=== PATIENT | female | born 1955 | race Caucasian/White ===

== ENCOUNTER 2018-01-23 15:24 | Outpatient (CLI) | payer MEDICARE ==
[~2018-01-23 15:24] MED LIST: Gadobenate Dimeglumine 529 MG/1 ML (20ML VIAL) ONE
--- NOTE | 2018-01-23 19:08 | MRI ---
BRAIN MRI WITH AND WITHOUT CONTRAST: 01/23/18 INDICATION: New onset memory loss, cognitive impairment. FINDINGS: There is no evidence of ventriculomegaly, mass effect, midline shift or acute territorial infarction. There are scattered punctate susceptibility foci bilaterally, nonspecific. There is minimal chronic ischemic disease of the cerebral white matter. There is no pathologic intra-axial enhancement. The im aged skull base flow voids are patent. There is retention cyst formation within the visualized parana kendell sinuses. IMPRESSION: 1. No acute intracranial abnormalities. 2. Few scattered punctate susceptibility foci of the cerebral hemispheres which may be related t o minimal hemosiderin deposition as there are scattered foci of gliosis indicative of microvascular i schemic disease. No pathologic enhancement evident. POS: YEISONH
== END 2018-01-23 15:25 | disposition home or self-care (01) ==
LOC: MRI 15:24
PROVIDERS: ATTEND Family Medicine
DX: G31.84 Mild cognitive impairment of uncertain or unknown etiology (principal); G93.89 Other specified disorders of brain
CPT/HCPCS: 36415; 70553; 80053; 80061; 83036; 84443; 85025; A9579

== ENCOUNTER 2018-07-15 09:53 | Emergency (ER) | payer MEDICARE ==
[2018-07-15] MEDS ORDERED: Ketorolac Tromethamine 30 MG/ML VIAL ONE (10:34)
[2018-07-15] MEDS ORDERED: Acetaminophen 325 MG TAB ONE (10:34)
--- NOTE | 2018-07-15 11:16 | RAD ---
LUMBAR SPINE THREE VIEWS: History: Back pain. Injury to back. FINDINGS: Moderate to severe degenerative change of the lumbar spine. There is anterior wedging of the L2 verte bra with wedging most pronounced laterally to the right. There is a slight scoliotic curvature with a pex at L2 with scoliosis to the left. Loss of disc space is prominent at L1-2 and L2-3 with prominent anterior and lateral osteophytes at these levels. Slight posterior listhesis of L1 on L2 and L2 on L3 on the lateral view. IMPRESSION: Moderate to severe degenerative changes, most prominent at L2 and L3 as described. POS: FABRICIO
[2018-07-15 11:49] LABS: Bilirubin Negative (Negative); Blood, Urine Negative (Negative); Clarity CLEAR (Clear); Glucose, Urine (Dipstick) Negative (Negative); Leukocyte Negative (Negative); Nitrite Negative (Negative); Protein, Urine (Dipstick) Negative (Neg-Trace); Specific Gravity, Urine 1.026 (1.002-1.036); Urobilinogen 0.2 mg/dL (0.2-1.0)
== END 2018-07-15 12:53 | disposition home or self-care (01) ==
LOC: ERS 09:53
DX: M54.5 Low back pain (principal); E11.9 Type 2 diabetes mellitus without complications; I10 Essential (primary) hypertension; F17.210 Nicotine dependence, cigarettes, uncomplicated
CPT/HCPCS: 72100; 81003; 96372; J1885

== ENCOUNTER 2022-06-06 08:17 | Outpatient (CLI) | payer MEDICARE, OTHER | END 2022-06-06 08:18 | disposition home or self-care (01) | LOC: SCSMRI 08:17 | PROVIDERS: ATTEND Family Medicine | DX: M25.551 Pain in right hip (principal) ==

== ENCOUNTER 2022-08-01 07:00 | Outpatient (CLI) | payer MEDICARE, OTHER | END 2022-08-01 07:01 | disposition home or self-care (01) | LOC: BICULT 07:00 | PROVIDERS: ATTEND Family Medicine | DX: N83.8 Other noninflammatory disorders of ovary, fallopian tube and broad ligament (principal) | CPT/HCPCS: 76856 ==

== ENCOUNTER 2024-12-30 21:46 | Inpatient (IN) | payer MEDICARE ==
[2024-12-30] MEDS ORDERED: Nitroglycerin 0.4 MG TAB (25 Tab Bottle) SL PRN (22:58)
[2024-12-30] MEDS ORDERED: Ondansetron PF 4 MG/2 ML Vial IVP PRN (23:00)
[2024-12-30] MEDS ORDERED: Electrolyte Replacement Protocol 1 EACH FS SCH (23:00)
[2024-12-30] MEDS ORDERED: Calcium Carbonate 500 MG ChewTAB PO PRN (23:00)
[2024-12-30 23:02] VITALS: BMI 26.8
[2024-12-31] MEDS ORDERED: Glucagon 1 MG/ML KIT IM PRN (00:08)
[2024-12-31] MEDS ORDERED: Dextrose 50% Abboject 50 ML SYRINGE SLOW IVP PRN (00:08)
[2024-12-31 04:58] LABS: #Basophils 0.05 10x3/uL (0.0-0.2); #Eosinophils 0.24 10x3/uL (0.0-0.7); #Monocytes 0.91 10x3/uL (0.11-0.59); #Neutrophils 3.82 10x3/uL (1.40-6.50); %Basophils 0.7 % (0.0-1.0); %Eosinophils 3.1 % (0.0-10.0); %Lymphocytes 34.5 % (21.0-51.0); %Monocytes 11.8 % (0.0-10.0); %Neutrophils 49.6 % (42.0-75.0); Hematocrit 37.8 % (36.0-47.0); Hemoglobin 12.1 g/dL (12.0-16.0); Mean Corpuscular Hemoglobin 29.5 pg (27.0-31.0); Mean Corpuscular Volume 92.2 fL (78.0-98.0); Platelet Count 201 10x3/uL (130-400); Red Blood Cell (RBC) Count 4.10 mill/uL (4.20-5.40); White Blood Cell (WBC) Count 7.69 10x3/uL (4.8-10.8)
[2024-12-31 05:21] LABS: ALT (SGPT) 16 U/L (Less than 34); AST (SGOT) 43 U/L (11-34); Albumin 3.6 g/dL (3.1-4.5); Alkaline Phosphatase 65 U/L (40-110); Anion Gap 12 mmol/L (10-20); BUN (Urea Nitrogen) 22 mg/dL (9.8-20.1); Bilirubin, Total 0.6 mg/dL (0.3-1.2); Calc. Creatinine Clearance 52 mL/min (70-130); Calcium 8.8 mg/dL (7.8-10.44); Carbon Dioxide 25 mmol/L (23-31); Chloride 109 mmol/L (98-107); Globulin 2.3 g/dL (2.4-3.5); Glucose 49 mg/dL (80-115); Potassium 3.6 mmol/L (3.5-5.1); Sodium 142 mmol/L (136-145)
[2024-12-31] MEDS: Aspirin Chewable 81 MG TAB PO SCH (09:49)
[2024-12-31] MEDS ORDERED: Iopamidol 370 76% 100 ML VIAL ONE (11:09)
[2024-12-31] MEDS ORDERED: Communication Order-Pharmacy FS SCH (14:30)
[2024-12-31] MEDS ORDERED: EPINEPHrine 1 MG/10 ML Abboject SYRINGE ONE (14:55)
[2024-12-31] MEDS ORDERED: Adenosine 6 mg (2 mL) VIAL ONE (14:55)
[2024-12-31] MEDS ORDERED: Nitroglycerin 50 MG/250 ML BOT 250 ML ONE (14:56)
[2024-12-31] MEDS ORDERED: PHENYLEPHRINE-NS 100 MCG/ML 10 ML SYRINGE ONE (14:56)
[2024-12-31] MEDS ORDERED: Heparin 10,000 UNITS/ 10 ML VIAL ONE (14:56)
[2024-12-31] MEDS ORDERED: Lidocaine 1% (PF) 30 ML VIAL ONE (15:57)
[2024-12-31] MEDS ORDERED: Aspirin Chewable 81 MG TAB ONE (16:39)
[2024-12-31] MEDS ORDERED: hydrALAZINE 20 MG/ML VIAL ONE (17:44)
[2024-12-31] MEDS: Acetaminophen 325 MG TAB PO PRN (21:44)
[2025-01-01 04:49] LABS: #Basophils Less than 0.03 10x3/uL (0.0-0.2); #Eosinophils Less than 0.03 10x3/uL (0.0-0.7); #Monocytes 0.41 10x3/uL (0.11-0.59); #Neutrophils 7.30 10x3/uL (1.40-6.50); %Basophils 0.2 % (0.0-1.0); %Eosinophils 0.0 % (0.0-10.0); %Lymphocytes 7.0 % (21.0-51.0); %Monocytes 4.9 % (0.0-10.0); %Neutrophils 87.7 % (42.0-75.0); Hematocrit 40.2 % (36.0-47.0); Hemoglobin 13.0 g/dL (12.0-16.0); Mean Corpuscular Hemoglobin 29.3 pg (27.0-31.0); Mean Corpuscular Volume 90.5 fL (78.0-98.0); Platelet Count 239 10x3/uL (130-400); Red Blood Cell (RBC) Count 4.44 mill/uL (4.20-5.40); White Blood Cell (WBC) Count 8.33 10x3/uL (4.8-10.8)
[2025-01-01 05:01] LABS: ALT (SGPT) 17 U/L (Less than 34); AST (SGOT) 40 U/L (11-34); Albumin 4.0 g/dL (3.1-4.5); Alkaline Phosphatase 76 U/L (40-110); Anion Gap 15 mmol/L (10-20); BUN (Urea Nitrogen) 22 mg/dL (9.8-20.1); Bilirubin, Total 0.8 mg/dL (0.3-1.2); Calc. Creatinine Clearance 47 mL/min (70-130); Calcium 9.1 mg/dL (7.8-10.44); Carbon Dioxide 24 mmol/L (23-31); Chloride 106 mmol/L (98-107); Globulin 2.4 g/dL (2.4-3.5); Glucose 125 mg/dL (80-115); Potassium 3.9 mmol/L (3.5-5.1); Sodium 141 mmol/L (136-145)
[2025-01-01] MEDS: Valsartan 80 MG TAB PO SCH (09:20)
[2025-01-01] MEDS: Carvedilol 3.125 MG TAB PO SCH (09:21)
[2025-01-01 13:02] VITALS: BP 132/61; TEMP 97.6
== END 2025-01-01 14:38 | disposition home or self-care (01) | DRG 322 ==
LOC: PCU 22:34 → 2NO 22:47
PROVIDERS: ADMIT Student in an Organized Health Care Education/Training Program; ATTEND Internal Medicine
PROC: 027035Z Dilation of Coronary Artery, One Artery with Two Drug-eluting Intraluminal Devices, Percutaneous Approach (ICD-10-PCS; principal; 2024-12-31)
PROC: 4A023N7 Measurement of Cardiac Sampling and Pressure, Left Heart, Percutaneous Approach (ICD-10-PCS; 2024-12-31)
PROC: B2151ZZ Fluoroscopy of Left Heart using Low Osmolar Contrast (ICD-10-PCS; 2024-12-31)
PROC: 3E033XZ Introduction of Vasopressor into Peripheral Vein, Percutaneous Approach (ICD-10-PCS; 2024-12-31)
DX: I21.4 Non-ST elevation (NSTEMI) myocardial infarction (principal); E11.9 Type 2 diabetes mellitus without complications; E78.5 Hyperlipidemia, unspecified; I10 Essential (primary) hypertension; I25.10 Atherosclerotic heart disease of native coronary artery without angina pectoris; Z96.651 Presence of right artificial knee joint; F03.90 Unspecified dementia, unspecified severity, without behavioral disturbance, psychotic disturbance, mood disturbance, and anxiety; I25.2 Old myocardial infarction; Z79.899 Other long term (current) drug therapy; Z79.84 Long term (current) use of oral hypoglycemic drugs; Z88.5 Allergy status to narcotic agent
CPT/HCPCS: 36415; 36416; 80053; 83036; 85025; 85347; 92928; 93005; 93010; 93306; 93458; 93798; 94760; 99152; 99153; C1769; C1874; C1887; C9600; J0153; J0165; J0360; J0461; J1644; J2250; J3010; J7030; Q9967